=== PATIENT | female | born 1945 | race Two or more races ===

== ENCOUNTER → 2016-11-08 | Emergency (ER) | payer OTHER | END | disposition home or self-care (01) | LOC: ER 01:59 | DX: Z48.01 Encounter for change or removal of surgical wound dressing (principal); I10 Essential (primary) hypertension; E11.9 Type 2 diabetes mellitus without complications | CPT/HCPCS: Z7502 ==

== ENCOUNTER 2016-12-02 19:00 | Inpatient (IN) | payer OTHER, MEDICARE ==
[~2016-12-02] VITALS: Ht 152.4 cm; Wt 55.4 kg
[2016-12-02 19:42] LABS: BASOPHILS # (AUTO) 0.1 /CMM (0.0-0.2); BASOPHILS % (AUTO) 1.1 % (0.0-2.0); DIFF TOTAL % 100 %; EOSINOPHILS # (AUTO) 0.1 /CMM (0.0-0.7); EOSINOPHILS % (AUTO) 0.7 % (0.0-6.0); HEMATOCRIT 30 % (33-45); HEMOGLOBIN 9.6 g/dL (11.5-14.8); LYMPHOCYTES # (AUTO) 0.2 /CMM (0.8-4.8); LYMPHOCYTES % (AUTO) 3.1 % (20.0-44.0); MEAN CORPUSCULAR HEMOGLOBIN 26 PG (26.0-33.0); MEAN CORPUSCULAR HGB CONC 32 g/dl (31.0-36.0); MEAN CORPUSCULAR VOLUME 80 fL (82-100); MONOCYTES # (AUTO) 0.3 /CMM (0.1-1.30); MONOCYTES % (AUTO) 4.2 % (2.0-12.0); NEUTROPHILS # (AUTO) 7.2 /CMM (1.8-8.9); NEUTROPHILS % (AUTO) 90.9 % (43.0-81.0); PLATELET COUNT (AUTO) 201 /CMM (150-450); RED BLOOD CELL COUNT(AUTO) 3.69 MIL/uL (4.0-5.2); WHITE BLOOD COUNT (AUTO) 7.9 K/uL (4.3-11.0)
[2016-12-02 19:52] LABS: ANION GAP 17 (5-14); CARBON DIOXIDE 21 mmol/L (21-32); CHLORIDE 92 mmol/L (98-107); CREATININE 1.6 mg/dL (0.6-1.3); GFR 32 mL/min (>60); GLUCOSE 237 mg/dL (74-106); SODIUM SERUM 125 mmol/L (136-145); UREA NITROGEN, BLOOD 18 mg/dL (7-18)
[2016-12-02 19:56] LABS: INR 1.2 (0.87-1.13); PROTHROMBIN TIME 12.6 SECS (9.5-12.7)
[2016-12-02 19:58] LABS: ALANINE AMINOTRANSFERASE 19 U/L (12-78); ALBUMIN 3.2 g/dL (3.4-5.0); ASPARTATE AMINOTRANSFERASE 17 U/L (15-37); BILIRUBIN,DIRECT 0.2 mg/dL (0.0-0.2); BILIRUBIN,TOTAL 0.5 mg/dL (0.2-1.0); INDIRECT BILIRUBIN 0.3 mg/dL (0.0-1.1); TOTAL PROTEIN, SERUM 6.9 g/dL (6.4-8.2)
[2016-12-02 20:00] LABS: TROPONIN I < 0.017 ng/mL (0.00-0.056)
[2016-12-02 20:02] LABS: KETONES,URINE Negative (NEGATIVE); LEUKOCYTE ESTERASE ,URINE Trace (NEGATIVE); PH,URINE 5.5 (5.0-8.0)
[2016-12-02 20:09] LABS: ADD UA MICROSCOPIC YES
[2016-12-02 20:15] LABS: ADD URINE CULTURE NO
[2016-12-02 20:29] LABS: LACTIC ACID 4.6 mmol/L (0.4-2.0)
[2016-12-02 20:36] LABS: *LACTIC ACID REFLEX FLAG YES
[2016-12-02] MEDS ORDERED: CEFTRIAXONE 1GM BAG (ER ONLY) 50 ML IV ONE ×2 (20:52→21:00)
[2016-12-02] MEDS ORDERED: IV SET PRIMARY 1 EA INFUS.SET MC ONE (20:52)
[2016-12-02] MEDS ORDERED: IV NS 0.9% 2,000 ML ONE (20:52)
[2016-12-02] MEDS ORDERED: SECONDARY IV SET 1 EA INFUS.SET MC ONE (20:52)
[2016-12-02] MEDS ORDERED: IV NS 0.9% 1,000 ML BAG IV ONE (21:00)
[2016-12-02 21:30] VITALS: BP 107/59
[2016-12-02] MEDS ORDERED: IV NS 0.9% 1,000 ML IV PRN (21:57)
[2016-12-02] MEDS ORDERED: MAG HYDROX/AL HYDROX/SIMETH 30 ML UDC PO PRN (22:00)
[2016-12-02] MEDS ORDERED: Z GUARD REMEDY 2 OZ OINT TP PRN (22:00)
[2016-12-02] MEDS ORDERED: ONDANSETRON HCL/PF 4 MG/2 ML VIAL IVP PRN (22:00)
[2016-12-02] MEDS ORDERED: HYDROCODONE/APAP 5/325MG 1 EACH TABLET PO PRN (22:00)
[2016-12-02] MEDS ORDERED: MAGNESIUM HYDROXIDE 30 ML UDC PO PRN (22:00)
[2016-12-02] MEDS ORDERED: DEXTROSE 50%-WATER 50 ML DISP.SYRIN IV PRN (22:00)
[2016-12-02] MEDS: CEFTRIAXONE 1 G in IV D5W 50 ML IV SCH (22:00)
[2016-12-02] MEDS ORDERED: METF-834 PO (22:12)
[2016-12-02] MEDS ORDERED: NATE120T6 PO (22:12)
[2016-12-02] MEDS ORDERED: SITA100T PO (22:12)
[2016-12-02] MEDS ORDERED: VALS320T13 PO (22:12)
[2016-12-02] MEDS ORDERED: CHLO25TA2 PO (22:12)
[2016-12-02] MEDS ORDERED: PHEN97.511 PO (22:12)
[2016-12-02] MEDS: BLOOD SUGAR DIAGNOSTIC 1 EACH STRIP IN SCH (22:42)
[2016-12-02] MEDS: INSULIN REGULAR, HUMAN 100 UNIT/ML 3 ML VIAL SQ PRN (23:16)
[2016-12-03] MEDS ORDERED: IV NS 0.9% 1,000 ML ONE ×2 (00:32→04:51)
[2016-12-03] MEDS ORDERED: ACETAMINOPHEN 325 MG TABLET ONE (03:12)
[2016-12-03] MEDS: ACETAMINOPHEN 325 MG TABLET PO PRN ×2 (03:15→10:12)
[2016-12-03] MEDS: IV NS 0.9% 1,000 ML IV PRN (05:02)
[2016-12-03 06:42] VITALS: BP 111/61
[2016-12-03 06:45] LABS: BASOPHILS % (AUTO) 0.1 % (0.0-2.0); DIFF TOTAL % 100 %; EOSINOPHILS % (AUTO) 0.2 % (0.0-6.0); HEMATOCRIT 26 % (33-45); HEMOGLOBIN 8.4 g/dL (11.5-14.8); LYMPHOCYTES # (AUTO) 0.5 /CMM (0.8-4.8); LYMPHOCYTES % (AUTO) 5.6 % (20.0-44.0); MEAN CORPUSCULAR HEMOGLOBIN 26 PG (26.0-33.0); MEAN CORPUSCULAR HGB CONC 32 g/dl (31.0-36.0); MEAN CORPUSCULAR VOLUME 79 fL (82-100); MONOCYTES # (AUTO) 0.7 /CMM (0.1-1.30); MONOCYTES % (AUTO) 8.4 % (2.0-12.0); NEUTROPHILS # (AUTO) 7.7 /CMM (1.8-8.9); NEUTROPHILS % (AUTO) 85.7 % (43.0-81.0); PLATELET COUNT (AUTO) 183 /CMM (150-450); RED BLOOD CELL COUNT(AUTO) 3.28 MIL/uL (4.0-5.2); WHITE BLOOD COUNT (AUTO) 8.9 K/uL (4.3-11.0)
[2016-12-03 06:50] LABS: THYROID STIMULATING HORMONE 2.36 uIU/mL (0.358-3.74)
[2016-12-03 06:54] LABS: CALCIUM, SERUM 8.3 mg/dL (8.5-10.1); CREATININE 1.2 mg/dL (0.6-1.3); POTASSIUM 4.3 mmol/L (3.5-5.1)
[2016-12-03] MEDS: INSULIN REGULAR, HUMAN 100 UNIT/ML 3 ML VIAL SQ PRN (07:00)
[2016-12-03] MEDS: BLOOD SUGAR DIAGNOSTIC 1 EACH STRIP IN SCH ×4 (07:00→21:43)
[2016-12-03] MEDS: NATEGLINIDE 60 MG TABLET PO SCH ×3 (08:29→17:35)
[2016-12-03] MEDS: VALSARTAN 80 MG TABLET PO SCH (08:30)
[2016-12-03] MEDS ORDERED: SECONDARY IV SET 1 EA INFUS.SET MC ONE ×2 (09:58→21:43)
[2016-12-03] MEDS: Magnesium 1GM/D5W 100ML PREMIX 100 ML IV SCH ×4 (10:06→13:59)
[2016-12-03 16:00] VITALS: BP 132/67
[2016-12-03] MEDS ORDERED: K PHOS NEUTRAL 250 MG TABLET PO ONE (16:00)
[2016-12-03] MEDS: METFORMIN XR 500 MG TAB.SR.24H PO SCH (17:35)
[2016-12-03 20:00] VITALS: BP 99/56
[2016-12-03] MEDS: CEFTRIAXONE 1 G in IV D5W 50 ML IV SCH (21:43)
[2016-12-04] VITALS (9 sets, daily range): BP systolic 121–135; BP diastolic 58–75
[2016-12-04] MEDS: BLOOD SUGAR DIAGNOSTIC 1 EACH STRIP IN SCH ×4 (05:45→21:12)
[2016-12-04] MEDS: IV NS 0.9% 1,000 ML IV PRN ×2 (06:34→15:30)
[2016-12-04] MEDS: INSULIN REGULAR, HUMAN 100 UNIT/ML 3 ML VIAL SQ PRN ×3 (06:47→21:17)
[2016-12-04 08:14] LABS: CALCIUM, SERUM 8.5 mg/dL (8.5-10.1); CREATININE 1.2 mg/dL (0.6-1.3); PHOSPHORUS 2.3 mg/dL (2.5-4.9)
[2016-12-04] MEDS: NATEGLINIDE 60 MG TABLET PO SCH ×3 (08:22→16:18)
[2016-12-04] MEDS: VALSARTAN 80 MG TABLET PO SCH (08:22)
[2016-12-04] MEDS: METFORMIN XR 500 MG TAB.SR.24H PO SCH ×2 (08:22→16:18)
[2016-12-04] MEDS ORDERED: IV SET PRIMARY PUMP SET 1 EA INFUS.SET MC ONE (10:48)
[2016-12-04] MEDS ORDERED: Sodium Phosphate 15 MMOL in IV D5W 250 ML IV ONE (11:00)
[2016-12-04] MEDS: ACETAMINOPHEN 325 MG TABLET PO PRN (16:18)
[2016-12-04 18:50] LABS: CREATININE, URINE 14.9 MG/DL (30.0-125.0)
[2016-12-04] MEDS: CEFTRIAXONE 1 G in IV D5W 50 ML IV SCH (21:24)
[2016-12-05] MEDS: IV NS 0.9% 1,000 ML IV PRN (00:52)
[2016-12-05] MEDS: BLOOD SUGAR DIAGNOSTIC 1 EACH STRIP IN SCH ×2 (05:35→11:12)
[2016-12-05] MEDS: INSULIN REGULAR, HUMAN 100 UNIT/ML 3 ML VIAL SQ PRN ×2 (05:41→11:13)
[2016-12-05 07:24] LABS: BASOPHILS % (AUTO) 0.4 % (0.0-2.0); DIFF TOTAL % 100 %; HEMATOCRIT 29 % (33-45); HEMOGLOBIN 9.3 g/dL (11.5-14.8); LYMPHOCYTES # (AUTO) 0.7 /CMM (0.8-4.8); LYMPHOCYTES % (AUTO) 15.9 % (20.0-44.0); MEAN CORPUSCULAR HEMOGLOBIN 25 PG (26.0-33.0); MEAN CORPUSCULAR HGB CONC 32 g/dl (31.0-36.0); MEAN CORPUSCULAR VOLUME 79 fL (82-100); MONOCYTES # (AUTO) 0.5 /CMM (0.1-1.30); MONOCYTES % (AUTO) 11.8 % (2.0-12.0); NEUTROPHILS # (AUTO) 3.2 /CMM (1.8-8.9); NEUTROPHILS % (AUTO) 70.9 % (43.0-81.0); PLATELET COUNT (AUTO) 236 /CMM (150-450); RED BLOOD CELL COUNT(AUTO) 3.64 MIL/uL (4.0-5.2); WHITE BLOOD COUNT (AUTO) 4.5 K/uL (4.3-11.0)
[2016-12-05 07:37] LABS: CALCIUM, SERUM 8.8 mg/dL (8.5-10.1); CREATININE 1.1 mg/dL (0.6-1.3); PHOSPHORUS 2.8 mg/dL (2.5-4.9); POTASSIUM 4.1 mmol/L (3.5-5.1)
[2016-12-05 08:00] VITALS: BP 120/66
[2016-12-05 08:49] VITALS: BP 120/64
[2016-12-05] MEDS: NATEGLINIDE 60 MG TABLET PO SCH ×2 (08:49→12:08)
[2016-12-05] MEDS: METFORMIN XR 500 MG TAB.SR.24H PO SCH (08:49)
[2016-12-05] MEDS: VALSARTAN 80 MG TABLET PO SCH (08:49)
[2016-12-05] MEDS ORDERED: SECONDARY IV SET 1 EA INFUS.SET MC ONE (09:56)
[2016-12-05] MEDS: Magnesium 1GM/D5W 100ML PREMIX 100 ML IV SCH ×2 (10:02→10:48)
== END 2016-12-05 13:00 | disposition home or self-care (01) | DRG 720 ==
LOC: ER 19:02 → TELE 21:08 → MED 12-04 14:34
PROVIDERS: ADMIT Contractor; ATTEND Contractor
DX: A41.9 Sepsis, unspecified organism (principal); N17.0 Acute kidney failure with tubular necrosis; E87.2 Acidosis; R65.20 Severe sepsis without septic shock; E11.65 Type 2 diabetes mellitus with hyperglycemia; E87.1 Hypo-osmolality and hyponatremia; N39.0 Urinary tract infection, site not specified; E88.09 Other disorders of plasma-protein metabolism, not elsewhere classified; D50.9 Iron deficiency anemia, unspecified; H40.9 Unspecified glaucoma; I10 Essential (primary) hypertension; T50.2X5A Adverse effect of carbonic-anhydrase inhibitors, benzothiadiazides and other diuretics, initial encounter; E86.9 Volume depletion, unspecified; Y92.009 Unspecified place in unspecified non-institutional (private) residence as the place of occurrence of the external cause; E83.42 Hypomagnesemia
CPT/HCPCS: 36415; 71010-TC; 80048-TC; 80061-TC; 80076-TC; 81000-TC; 82570-TC; 82728-TC; 82962-TC; 83540-TC; 83605-TC; 83735-TC; 83935-TC; 84100-TC; 84300-TC; 84443-TC; 84484-TC; 85025-TC; 85730-TC; 87040-TC; 87081-TC; 87086-TC; 94799-TC; A4606; A9563; J0696; J1815; J3475; J7030; J7060; Z7610